=== PATIENT | male | born 1990 | race African-American/Black ===

== ENCOUNTER 2018-09-21 18:04 | Emergency (ER) | payer OTHER ==
[2018-09-21] MEDS ORDERED: DIPH/PERTUSS(ACELL)/TETANUS VAC/PF 0.5 ML SYR (>=10YO) IM ONE (19:40)
--- NOTE | 2018-09-21 20:22 | ER Document Report ---
HPI - HPI Time Seen by Provider: 09/21/18 19:27 Pain Level: 1 Notes: Patient is a 28-year-old male presented to the emergency department with chief complaint of puncture wound to his left foot. Patient reports he was at work and stepped on a ruben nail, he states this went through his shoe. He is unsure when his last tetanus was. - MUSCULOSKELETAL Musculoskeletal: REPORTS: Extremity pain Past Medical History - General Information source: Patient - Social History Smoking Status: Never Smoker Frequency of alcohol use: None Drug Abuse: None Family History: Reviewed & Not Pertinent Patient has suicidal ideation: No Patient has homicidal ideation: No - Medical History Medical History: Negative Renal/ Medical History: Denies: Hx Peritoneal Dialysis Surgical Hx: Negative - Immunizations Immunizations up to date: Yes Vertical Provider Document - CONSTITUTIONAL Notes: PHYSICAL EXAMINATION: GENERAL: Well-appearing, well-nourished and in no acute distress. HEAD: Atraumatic, normocephalic. EYES: Pupils equal round extraocular movements intact, conjunctiva are normal. ENT: Nares patent NECK: Normal range of motion LUNGS: No respiratory distress Musculoskeletal: Normal range of motion NEUROLOGICAL: Normal speech, normal gait. PSYCH: Normal mood, normal affect. SKIN: Puncture wound noted to plantar surface of left foot, no surrounding erythema or ecchymosis. - INFECTION CONTROL TRAVEL OUTSIDE OF THE [place] IN LAST 30 DAYS: No Course - Re-evaluation Re-evalutation: Tiny puncture wound noted to plantar surface of left foot. Tdap updated. Patient placed on antibiotics. Patient discharged home in stable condition. - Vital Signs Vital signs: Temp Pulse Resp BP Pulse Ox 98.3 F 66 18 162/85 H 97 09/21/18 18:13 09/21/18 18:13 09/21/18 18:13 09/21/18 18:13 09/21/18 18:13 Discharge - Discharge Clinical Impression: Puncture wound, Need for Tdap vaccination Condition: Stable Disposition: HOME, SELF-CARE Additional Instructions: You are seen today for a puncture wound to your foot. This closely for signs of infection to include increased redness, swelling, pain or drainage from the area. Return to the emergency department if you experience any other symptoms. Please take antibiotics as prescribed, finish the entire course to help prevent infection. Prescriptions: RX: Ciprofloxacin HCl [Cipro 500 mg Tablet] 500 mg PO BID #14 tablet Forms: Return to Work
[2018-09-21 20:34] VITALS: BP 141/97
== END 2018-09-21 20:34 | disposition home or self-care (01) ==
LOC: ER 18:04
DX: S91.332A Puncture wound without foreign body, left foot, initial encounter (principal); X58.XXXA Exposure to other specified factors, initial encounter; Y99.0 Civilian activity done for income or pay; Z23 Encounter for immunization
CPT/HCPCS: 90471; 90715; 99283